=== PATIENT | male | born 1980 | race Caucasian/White ===

== ENCOUNTER 2021-03-02 08:33 | Inpatient (IN) | payer BC ==
[~2021-03-02] VITALS: Ht 185.4 cm; Wt 92.6 kg
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
[2021-03-02] MEDS ORDERED: VANCOMYCIN 1 GM in IV NORMAL SALINE 250ML 250 ML IV ONE (09:00)
--- NOTE | 2021-03-02 09:10 | RAD ---
3 views right hand 03/02/2021 8:51 AM Indication: Reason: cellulitis Comparison: None Findings: There is no acute fracture or dislocation. Articular surfaces are uninterupted and smooth. No acute soft tissue changes are identified radiographically. Impression: No evidence of acute osseous abnormality. Electronically signed by: Alon Reid MD (03/02/2021 9:07 AM) [id number]
[2021-03-02] MEDS ORDERED: VANCOMYCIN 2 GM in IV NORMAL SALINE 500ML 500 ML IV ONE (09:15)
[2021-03-02 09:36] LABS: BASO # 0.1 x10^3/uL (0.0-0.2); BASO % 1 % (0-3); EOS # 0.2 x10^3/uL (0.0-0.7); EOS % 1 % (0-3); HEMATOCRIT 47.3 % (39.0-53.0); HEMOGLOBIN 15.7 g/dL (13.0-17.5); LYMPH # 1.7 x10^3/uL (1.0-4.8); LYMPH % 12 % (24-48); MEAN CORPUSCULAR HEMOGLOBIN 29 pg (25-35); MEAN CORPUSCULAR HGB CONC 33 g/dL (31-37); MEAN CORPUSCULAR VOLUME 88 fL (79-100); MONO # 0.9 x10^3/uL (0.0-1.1); MONO % 6 % (0-9); NEUT # 11.2 x10^3uL (1.8-7.7); NEUT % 80 % (31-73); PLATELET COUNT 217 x10^3/uL (140-400); RED CELL DISTRIBUTION WIDTH 13.9 % (11.5-14.5); WHITE BLOOD COUNT 14.1 x10^3/uL (4.0-11.0)
[2021-03-02 09:48] LABS: CALCIUM 8.4 mg/dL (8.5-10.1); CREATININE 1.1 mg/dL (0.7-1.3); GFR 73.4; POTASSIUM 3.8 mmol/L (3.5-5.1)
[2021-03-02] MEDS ORDERED: ACETAMINOPHEN 325 MG TABLET PO PRN (11:15)
[2021-03-02] MEDS ORDERED: ONDANSETRON PF 4 MG/2 ML VIAL. IVP PRN (11:15)
[2021-03-02 12:18] VITALS: BP 140/86
[2021-03-02] MEDS ORDERED: diphenhydrAMINE 50 MG/ML VIAL IVP PRN (12:30)
[2021-03-02] MEDS ORDERED: VANCOMYCIN PER PHARMACY MC PRN (14:45)
[2021-03-02] MEDS ORDERED: ZOLPIDEM 5 MG TABLET. PO PRN (14:45)
[2021-03-02] MEDS: HYDROcodone/APAP 7.5/325MG 1 TAB TABLET PO PRN ×2 (15:21→21:51)
[2021-03-02 16:13] VITALS: BP 154/85
[2021-03-02 18:50] VITALS: BP 144/91
[2021-03-02] MEDS: VANCOMYCIN 1.5 GM in IV NORMAL SALINE 500ML 500 ML IV SCH (20:05)
[2021-03-03 05:00] VITALS: BP 128/87
[2021-03-03] MEDS: HYDROcodone/APAP 7.5/325MG 1 TAB TABLET PO PRN (08:13)
[2021-03-03] MEDS: VANCOMYCIN 1.5 GM in IV NORMAL SALINE 500ML 500 ML IV SCH (08:53)
[2021-03-03 10:56] VITALS: BP 142/96
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
[2021-03-07] MEDS ORDERED: FLUT1AER IH (22:12)
[2021-03-07] MEDS ORDERED: TAMS0.4C97 PO (22:12)
[2021-03-07] MEDS ORDERED: METO-239 PO (22:12)
[2021-03-07] MEDS ORDERED: ASPI81TA59 PO (22:12)
[2021-03-07] MEDS ORDERED: ALBU2.5V8 IH (22:12)
[2021-03-07] MEDS ORDERED: PANT40TA6 PO (22:12)
== END 2021-03-03 13:30 | disposition home or self-care (01) | DRG 605 ==
LOC: ER 08:33 → ER HOLD 11:03 → 1 SOUTH 12:04 → OBSVTOIN 14:50
PROVIDERS: ADMIT Family Medicine; ATTEND Family Medicine
DX: S61.431A Puncture wound without foreign body of right hand, initial encounter (principal); L03.113 Cellulitis of right upper limb; S60.414A Abrasion of right ring finger, initial encounter; Z90.49 Acquired absence of other specified parts of digestive tract; Z98.52 Vasectomy status; Z20.822 Contact with and (suspected) exposure to COVID-19; W18.39XA Other fall on same level, initial encounter; Y93.89 Activity, other specified; Y92.89 Other specified places as the place of occurrence of the external cause; Y99.8 Other external cause status
CPT/HCPCS: 36415; 73130; 80048; 83605; 85025; 87040; 87426; 96365; 96366; G0378; G0379; J1200; J3370; J7040; U0003; 99285-25